=== PATIENT | male | born 1940 | race Caucasian/White ===

== ENCOUNTER 2023-02-04 09:31 | Emergency (ER) | payer MEDICARE ==
[~2023-02-04] VITALS: Ht 188 cm; Wt 90.7 kg
[2023-02-04 09:54] VITALS: BP 123/75
[2023-02-04 10:00] VITALS: BP 126/79
[2023-02-04 11:00] VITALS: BP 126/79
== END 2023-02-04 11:23 | disposition home or self-care (01) ==
LOC: ED 09:31
DX: M79.642 Pain in left hand (principal); M79.89 Other specified soft tissue disorders; I48.91 Unspecified atrial fibrillation; Z95.0 Presence of cardiac pacemaker

== ENCOUNTER 2023-12-13 13:11 | Emergency (ER) | payer MEDICARE ==
[~2023-12-13] VITALS: Ht 188 cm; Wt 86.2 kg
[2023-12-13] VITALS (10 sets, daily range): BP systolic 128–152; BP diastolic 76–91
[2023-12-13] MEDS ORDERED: CLOPIDOGREL75 MG PO (14:08)
[2023-12-13] MEDS ORDERED: XARELTO20 MG PO (14:08)
[2023-12-13] MEDS ORDERED: METOPROLOL100 M1 PO (14:09)
[2023-12-13] MEDS ORDERED: ATORVASTATIN CA80 MG PO (14:09)
[2023-12-13] MEDS ORDERED: LASIX 40 MG TAB40 MG PO (14:10)
[2023-12-13] MEDS ORDERED: AMIODARONE HYD200 MG (14:11)
[2023-12-13 14:25] LABS: BASO% 0.4 % (0-3); EOS% 2.2 % (0-8); HEMATOCRIT 41.7 % (39.0-50.0); HEMOGLOBIN 13.7 g/dl (14.0-18.0); IMMATURE GRANULOCYTES 0.2 % (0.0-5.0); MEAN CELL VOLUME 94.3 fL CALC (80.0-100.0); MEAN CORPUSCULAR HGB CONC 32.9 g/dL CAL (32.0-36.0); MONO% 12.5 % (2-13); NEUT# 5.35 thou/uL (1.82-7.42); NEUT% 65.7 % (42-76); RED BLOOD COUNT 4.42 mill/uL (4.70-6.10); RED CELL DISTRI WIDTH 14.2 % (11.5-15.5)
[2023-12-13 14:54] LABS: ALBUMIN 4.2 g/dL (3.2-5.0); BILIRUBIN, TOTAL 1.7 mg/dL (0.2-1.3); CREATININE 1.4 mg/dL (0.7-1.3); POTASSIUM 4.4 mmol/l (3.5-5.1); TOTAL PROTEIN 6.8 g/dL (6.3-8.2)
[2023-12-13] MEDS ORDERED: SODIUM CHLORIDE 0.9% 1,000 ML IV ONE (16:40)
[2023-12-13 19:53] LABS: URINE BILIRUBIN - DIPSTICK Negative (NEGATIVE); URINE BLOOD DIPSTICK Negative (NEGATIVE); URINE GLUCOSE - DIPSTICK Negative (NEGATIVE); URINE KETONE Negative (NEGATIVE); URINE LEUK ESTERASE Negative (NEGATIVE); URINE NITRITE - DIPSTICK Negative (Negative); URINE PROTEIN - DIPSTICK Negative (NEG-TRACE); URINE SPECIFIC GRAVITY 1.015
[2023-12-13 19:55] LABS: URINE COLOR Yellow
[2023-12-13] MEDS ORDERED: ACETAMINOPHEN 325 MG/TAB PO ONE (20:30)
== END 2023-12-13 21:40 | disposition home or self-care (01) ==
LOC: ED 13:11
PROVIDERS: Family Medicine
DX: R10.12 Left upper quadrant pain (principal); I10 Essential (primary) hypertension; I48.91 Unspecified atrial fibrillation; E78.5 Hyperlipidemia, unspecified; Z20.822 Contact with and (suspected) exposure to COVID-19
CPT/HCPCS: Q9967